=== PATIENT | male | born 1950 | race Caucasian/White ===

== ENCOUNTER 2025-01-08 11:57 | Inpatient (IN) | payer MEDICARE, BC ==
[2025-01-08] VITALS (21 sets, daily range): BP systolic 80–135; BP diastolic 48–99; TEMP 98.1; O2SAT 83–99
[~2025-01-08] VITALS: Ht 172.7 cm; Wt 52.2 kg
[2025-01-08] MEDS ORDERED: MORPHINE SULFATE 2 MG/1 ML DISP.SYRIN ONE (12:29)
[2025-01-08] MEDS ORDERED: ONDANSETRON 4 MG/2 ML VIAL ONE (12:29)
[2025-01-08 12:32] LABS: PLATELET COUNT (AUTO) 267 K/uL (152-348); RED BLOOD CELL COUNT(AUTO) 4.35 MIL/uL (4.06-5.63); RED CELL DISTRIBUTION WIDTH 14.9 % (12.1-16.2); WHITE BLOOD COUNT (AUTO) 14.6 K/uL (3.6-10.2)
[2025-01-08] MEDS ORDERED: IOHEXOL 300MG/ML 100 ML INFUS..BTL ONE (12:33)
[2025-01-08] MEDS ORDERED: SWABABLE VALVE TRANSFER SET EA MC ONE ×2 (12:33→19:26)
[2025-01-08] MEDS ORDERED: IV NORMAL SALINE 250 ML IV ONE ×2 (12:34→19:26)
[2025-01-08 12:41] LABS: CREATININE 1.0 mg/dL (0.6-1.3); SODIUM SERUM 143 mmol/L (136-145); UREA NITROGEN, BLOOD 19 mg/dL (7-18)
[2025-01-08] MEDS: MORPHINE SULFATE 2 MG/1 ML DISP.SYRIN IV ONE (12:41)
[2025-01-08] MEDS: IV NORMAL SALINE 1000 ML BAG IV ONE ×2 (12:41→16:27)
[2025-01-08] MEDS: ONDANSETRON 4 MG/2 ML VIAL IV ONE (12:41)
[2025-01-08 12:47] LABS: ASPARTATE AMINOTRANSFERASE 38 U/L (15-37); TOTAL PROTEIN, SERUM 6.8 g/dL (6.4-8.2)
[2025-01-08] MEDS: POTASSIUM CHLORIDE 50 ML IV SCH (14:30)
[2025-01-08] MEDS: POTASSIUM CHLORIDE 20 MEQ TAB.PRT.SR PO ONE (14:30)
[2025-01-08] MEDS ORDERED: CLOP75TA33 PO (15:58)
[2025-01-08] MEDS ORDERED: NIAC500T25 PO (15:58)
[2025-01-08] MEDS ORDERED: LISI10TA29 PO (15:58)
[2025-01-08] MEDS ORDERED: HYDR-5156 PO (15:58)
[2025-01-08] MEDS ORDERED: APIX5TAB4 PO (15:58)
[2025-01-08] MEDS ORDERED: METO25TA6 PO (15:58)
[2025-01-08] MEDS ORDERED: FENO145T21 PO (15:58)
[2025-01-08] MEDS ORDERED: TAMS0.4C PO (15:58)
[2025-01-08] MEDS ORDERED: PIPERACILLIN/TAZOBACTAM/D5W 50 ML IV ONE (16:36)
[2025-01-08] MEDS: PIPERACILLIN SODIUM/TAZOBACTAM 3.375 G in IV DEXTROSE 5% 50 ML IV ONE (16:49)
[2025-01-08 17:08] LABS: ABG BASE EXCESS -0.5 mmol/L (-2.0-3.0); ABG HCO3 23.6 mmol/L (21.0-28.0); ABG PCO2 37.1 mmHg (35.0-48.0); ABG PH 7.422 (7.350-7.450); ABG PO2 50.7 mmHg (83.0-108.0); ABG TOTAL HEMOGLOBIN 13.9 G/dL (13.5-17.5); AaDO2 86.9 mmHg; FIO2 52.0 %; FLOW, BLOOD GAS 8.00 L/min (0.00-30.00)
[2025-01-08 18:23] LABS: ABG SITE RIGHT RADIAL
[2025-01-08] MEDS ORDERED: IOHEXOL 350 100 ML INFUS..BTL ONE (19:26)
[2025-01-08] MEDS ORDERED: ONDANSETRON 4 MG/2 ML VIAL IV PRN (19:30)
[2025-01-08] MEDS: IV NORMAL SALINE 500 ML IV ONE (20:00)
[2025-01-08] MEDS ORDERED: VANCOMYCIN IV 200 ML ONE (21:16)
[2025-01-08] MEDS ORDERED: PIPERACILLIN/TAZOBACTAM/D5W 100 ML IV ONE (21:16)
[2025-01-08] MEDS: ENOXAPARIN SODIUM 40 MG/0.4 ML DISP.SYRIN SQ SCH (21:19)
[2025-01-08] MEDS: VANCOMYCIN IV 1,000 MG in IV DEXTROSE 5% 250 ML IV ONE (21:24)
[2025-01-08] MEDS: NOREPINEPHRINE 8MG/NS 250ML 250 ML IV PRN (21:58)
[2025-01-08] MEDS: MORPHINE SULFATE 2 MG/1 ML DISP.SYRIN IV PRN (23:18)
[2025-01-08] MEDS: IV NS 1000 ML 1,000 ML IV PRN (23:30)
[2025-01-08] MEDS: PIPERACILLIN SODIUM/TAZOBACTAM 3.375 G in IV DEXTROSE 5% 50 ML IV SCH (23:31)
[2025-01-08 23:33] LABS: *BILIRUBIN,URIN 1+ (NEGATIVE); *BLOOD, URINE 1+ (NEGATIVE); *CLARITY,URINE CLEAR (CLEAR); *COLOR,URINE YELLOW (YELLOW); *KETONES,URINE NEGATIVE (NEGATIVE); *PROTEIN,URINE 1+ (NEGATIVE); *UROBILINOGEN,URINE 1.0 E.U./dl (NORMAL); LEUKOCYTE ESTERASE ,URINE NEGATIVE (NEGATIVE); NITRITE, URINE NEGATIVE (NEGATIVE); UGLUCOSE NEGATIVE (NEGATIVE)
[2025-01-08 23:40] LABS: SQUAMOUS EPITHELIAL CELL,UR NONE SEEN /HPF (NONE SEEN)
[2025-01-09] VITALS (102 sets, daily range): BP systolic 62–126; BP diastolic 43–112; TEMP 97.2–98.2; O2SAT 84–100
[2025-01-09 05:07] LABS: PLATELET COUNT (AUTO) 276 K/uL (152-348); RED BLOOD CELL COUNT(AUTO) 4.09 MIL/uL (4.06-5.63); RED CELL DISTRIBUTION WIDTH 14.8 % (12.1-16.2); WHITE BLOOD COUNT (AUTO) 11.5 K/uL (3.6-10.2)
[2025-01-09 05:22] LABS: CREATININE 1.4 mg/dL (0.6-1.3); SODIUM SERUM 141 mmol/L (136-145); UREA NITROGEN, BLOOD 29 mg/dL (7-18)
[2025-01-09 05:48] LABS: BAND % (MANUAL) 5 % (0-10); LYMPHOCYTES % (MANUAL) 6 % (20-40); MONOCYTES % (MANUAL) 4 % (2-10); NEUTROPHILS % (MANUAL) 85 % (42-75); PLATELET ESTIMATE ADEQUATE
[2025-01-09] MEDS ORDERED: ONDANSETRON 4 MG/2 ML VIAL IV PRN (06:30)
[2025-01-09] MEDS: VANCOMYCIN IV 1,000 MG in IV DEXTROSE 5% 250 ML IV ONE (07:59)
[2025-01-09] MEDS: PANTOPRAZOLE SODIUM 40 MG VIAL IV SCH (08:02)
[2025-01-09] MEDS: MAGNESIUM SULFATE/D5W 100 ML IV SCH (09:53)
[2025-01-09] MEDS: POTASSIUM CHLORIDE 50 ML IV SCH (09:53)
[2025-01-09] MEDS ORDERED: PIPERACILLIN SODIUM/TAZOBACTAM 3.375 G in IV DEXTROSE 5% 50 ML IV SCH (12:00)
[2025-01-09] MEDS: PIPERACILLIN SODIUM/TAZOBACTAM 3.375 G in IV DEXTROSE 5% 100 ML IV SCH (13:03)
[2025-01-09] MEDS ORDERED: MIRT7.5T10 PO (17:48)
[2025-01-10] VITALS (98 sets, daily range): BP systolic 80–134; BP diastolic 50–73; TEMP 97.5–98.2; O2SAT 89–100
[2025-01-10 05:06] LABS: PLATELET COUNT (AUTO) 251 K/uL (152-348); RED BLOOD CELL COUNT(AUTO) 3.64 MIL/uL (4.06-5.63); RED CELL DISTRIBUTION WIDTH 15.3 % (12.1-16.2); WHITE BLOOD COUNT (AUTO) 14.3 K/uL (3.6-10.2)
[2025-01-10 05:18] LABS: CREATININE 1.9 mg/dL (0.6-1.3); SODIUM SERUM 143 mmol/L (136-145); UREA NITROGEN, BLOOD 44 mg/dL (7-18)
[2025-01-10] MEDS: POTASSIUM CHLORIDE 50 ML IV SCH (11:10)
[2025-01-10 17:08] LABS: IRON, SERUM 7.0 ug/dL (50-175)
[2025-01-10 18:03] LABS: LACTATE DEHYDROGENASE 111.0 U/L (85-227)
[2025-01-10] MEDS: ENOXAPARIN SODIUM 30 MG/0.3 ML DISP.SYRIN SUBCUT SCH (21:15)
[2025-01-11] VITALS (83 sets, daily range): BP systolic 82–141; BP diastolic 46–104; TEMP 97.7–98.3; O2SAT 84–100
[2025-01-11 05:02] LABS: PLATELET COUNT (AUTO) 186 K/uL (152-348); RED BLOOD CELL COUNT(AUTO) 3.17 MIL/uL (4.06-5.63); RED CELL DISTRIBUTION WIDTH 15.5 % (12.1-16.2); WHITE BLOOD COUNT (AUTO) 11.2 K/uL (3.6-10.2)
[2025-01-11 05:15] LABS: CREATININE 1.4 mg/dL (0.6-1.3); UREA NITROGEN, BLOOD 31 mg/dL (7-18)
[2025-01-11 05:19] LABS: SODIUM SERUM 146 mmol/L (136-145)
[2025-01-11] MEDS: POTASSIUM CHLORIDE 50 ML IV SCH (08:27)
[2025-01-11] MEDS ORDERED: LORAZEPAM 1 MG TABLET PO PRN (09:45)
[2025-01-11] MEDS: VANCOMYCIN HCL 750 MG in IV DEXTROSE 5% 250 ML IV ONE (10:49)
[2025-01-11] MEDS: SODIUM PHOSPHATE MM 15 MMOL in IV NORMAL SALINE 250 ML IV ONE (13:19)
[2025-01-11] MEDS: LORAZEPAM 2 MG/1 ML VIAL IV PRN (13:29)
[2025-01-11] MEDS: ENOXAPARIN SODIUM 40 MG/0.4 ML DISP.SYRIN SQ SCH (20:21)
[2025-01-11] MEDS: FERROUS SULFATE 325 MG TABEC PO SCH (20:23)
[2025-01-12] VITALS (56 sets, daily range): BP systolic 93–139; BP diastolic 50–114; TEMP 97.3–98.2; O2SAT 88–100
[2025-01-12 05:37] LABS: PLATELET COUNT (AUTO) 192 K/uL (152-348); RED BLOOD CELL COUNT(AUTO) 3.34 MIL/uL (4.06-5.63); RED CELL DISTRIBUTION WIDTH 15.6 % (12.1-16.2); WHITE BLOOD COUNT (AUTO) 14.9 K/uL (3.6-10.2)
[2025-01-12 05:45] LABS: CREATININE 1.3 mg/dL (0.6-1.3); UREA NITROGEN, BLOOD 21 mg/dL (7-18)
[2025-01-12 05:54] LABS: SODIUM SERUM 150 mmol/L (136-145)
[2025-01-12 06:02] LABS: ABG BASE EXCESS -3.9 mmol/L (-2.0-3.0); ABG HCO3 19.8 mmol/L (21.0-28.0); ABG PCO2 31.1 mmHg (35.0-48.0); ABG PH 7.421 (7.350-7.450); ABG PO2 52.1 mmHg (83.0-108.0); ABG SITE LEFT BRACHIAL; ABG TOTAL HEMOGLOBIN 10.8 G/dL (13.5-17.5); AaDO2 88.1 mmHg; FIO2 55.0 %; FLOW, BLOOD GAS 40.00 L/min (0.00-30.00)
[2025-01-12 06:09] LABS: FOLATE (FOLIC ACID), SERUM 10.3 ng/mL (>3.0)
[2025-01-12 08:07] LABS: *IMMUNOGLOBULIN G, SERUM 691 mg/dL (603-1613); CARBOHYDRATE ANTIGEN, 19-9 165 U/mL (0-35); CARCINOEMBRYONIC AG (CEA) 12.7 ng/mL (0.0-4.7); IMMUNOGLOBULIN A, SERUM 191 mg/dL (61-437); IMMUNOGLOBULIN M, SERUM 33 mg/dL (15-143)
[2025-01-12] MEDS: VANCOMYCIN IV 1,000 MG in IV DEXTROSE 5% 250 ML IV ONE (11:59)
[2025-01-12] MEDS: POTASSIUM CHLORIDE 50 ML IV SCH (12:19)
[2025-01-12] MEDS: LORAZEPAM 2 MG/1 ML VIAL IV ONE (18:31)
[2025-01-12] MEDS: MORPHINE SULFATE 4 MG/1 ML DISP.SYRIN IV ONE (18:31)
[2025-01-12] MEDS: LORAZEPAM 2 MG/1 ML VIAL IV PRN (19:58)
[2025-01-12] MEDS: MORPHINE SULFATE 2 MG/1 ML DISP.SYRIN IV PRN (21:49)
[2025-01-13 01:43] VITALS: O2SAT 94
[2025-01-13] MEDS: MORPHINE SULFATE PF IV DRIP 100 MG in IV DEXTROSE 5% 96 ML IV PRN (14:03)
[2025-01-15 07:07] LABS: A/G RATIO 1.0 (0.7-1.7); BETA GLOBULIN 0.7 g/dL (0.7-1.3); GLOBULIN, TOTAL 2.3 g/dL (2.2-3.9); M-SPIKE Not Observed g/dL (Not Observed); PROTEIN, TOTAL 4.5 g/dL (6.0-8.5)
[2025-01-15 15:12] LABS: FREE KAPPA LT CHAINS SERUM 21.5 mg/L (3.3-19.4); FREE LAMBDA LT CHAIN SERUM 22.7 mg/L (5.7-26.3); KAPPA/LAMBDA RATIO SERUM 0.95 (0.26-1.65)
== END 2025-01-14 04:55 | DRG 871 ==
LOC: ER 11:57 → MEDSURG3 11:58 → UNDOADMIN 19:34 → CCU 19:34 → ER 19:52 → MEDSURG3 01-12 18:54 → CCU 01-12 18:54 → UNDODISIN 01-13 10:20
PROC: 02HV33Z Insertion of Infusion Device into Superior Vena Cava, Percutaneous Approach (ICD-10-PCS; principal; 2025-01-08)
PROC: 0D9670Z Drainage of Stomach with Drainage Device, Via Natural or Artificial Opening (ICD-10-PCS; 2025-01-09)
DX: A41.9 Sepsis, unspecified organism (principal); J18.9 Pneumonia, unspecified organism; J69.0 Pneumonitis due to inhalation of food and vomit; J96.01 Acute respiratory failure with hypoxia; Z51.5 Encounter for palliative care; Z66 Do not resuscitate; R65.21 Severe sepsis with septic shock; R57.1 Hypovolemic shock; C25.8 Malignant neoplasm of overlapping sites of pancreas; K55.9 Vascular disorder of intestine, unspecified; K31.1 Adult hypertrophic pyloric stenosis; C79.9 Secondary malignant neoplasm of unspecified site; I11.9 Hypertensive heart disease without heart failure; I25.10 Atherosclerotic heart disease of native coronary artery without angina pectoris; Z95.1 Presence of aortocoronary bypass graft; E78.5 Hyperlipidemia, unspecified; E87.6 Hypokalemia; Z53.20 Procedure and treatment not carried out because of patient's decision for unspecified reasons
CPT/HCPCS: 36415; 36600; 70030-TC; 71045; 71275; 82378; 82746; 82784; 82803; 83550; 83605; 83615; 83690; 83735; 84100; 84155; 84165; 84443; 84484; 85018; 85025; 86301; 86334; 87040; 87086; 94760; A4606; A4663; G0378; J1650; J2060; J2270; J2274; J2405; J2470; J2543; J3373; J3475; J3480; J3490; J7040; J7042; J7050; Q9967